=== PATIENT | male | born 1965 | race Caucasian/White ===

== ENCOUNTER 2019-05-18 17:02 | Emergency (ER) | payer OTHER ==
[~2019-05-18] VITALS: Ht 167.6 cm; Wt 68.9 kg
[2019-05-18] MEDS ORDERED: ATOR10TA PO (17:31)
[2019-05-18] MEDS ORDERED: LISI10TA5 PO (17:31)
--- NOTE | 2019-05-18 17:39 | NUR ---
Dr. Herrera at the bedside for MSE.
[2019-05-18] MEDS ORDERED: KETOROLAC TROMETHAMINE 30 MG INJ IVP ONE (17:45)
[2019-05-18] MEDS ORDERED: KETOROLAC TROMETHAMINE 30 MG INJ ONE ×2 (17:45→17:52)
[2019-05-18 17:51] LABS: BASOPHILS # (AUTO) 0.1 K/uL (0.0-8.0); BASOPHILS % (AUTO) 0.6 % (0.0-2.0); EOSINOPHILS # (AUTO) 0.6 K/uL (0.0-0.7); EOSINOPHILS % (AUTO) 6.3 % (0.0-7.0); HEMATOCRIT 41.7 % (36.7-47.1); HEMOGLOBIN 14.1 g/dL (12.5-16.3); LYMPHOCYTES # (AUTO) 1.7 K/uL (20.0-40.0); LYMPHOCYTES % (AUTO) 18.1 % (20.5-51.5); MEAN CORPUSCULAR HEMOGLOBIN 31.3 uug (23.8-33.4); MEAN CORPUSCULAR HGB CONC 34 g/dL (32.5-36.3); MEAN CORPUSCULAR VOLUME 92.9 fL (73.0-96.2); MONOCYTES # (AUTO) 1.1 K/uL (2.0-10.0); MONOCYTES % (AUTO) 11.1 % (0.0-11.0); NEUTROPHILS # (AUTO) 6.1 K/uL (1.8-8.9); NEUTROPHILS % (AUTO) 63.9 % (38.5-71.5); PLATELET COUNT (AUTO) 275 K/uL (152-348); RED BLOOD CELL COUNT(AUTO) 4.49 MIL/uL (4.06-5.63); WHITE BLOOD COUNT (AUTO) 9.6 K/uL (3.6-10.2)
[2019-05-18 17:55] LABS: *BILIRUBIN,URIN NEGATIVE (NEGATIVE); *BLOOD, URINE 3+ (NEGATIVE); *CLARITY,URINE SLIGHTLY CLOUDY (CLEAR); *COLOR,URINE AMBER (YELLOW); *KETONES,URINE NEGATIVE (NEGATIVE); *UROBILINOGEN,URINE 0.2 E.U./dl (NORMAL); LEUKOCYTE ESTERASE ,URINE TRACE (NEGATIVE); NITRITE, URINE NEGATIVE (NEGATIVE); PH,URINE 8.5 (5.0-8.0); UGLUCOSE NEGATIVE (NEGATIVE)
[2019-05-18] MEDS ORDERED: MORPHINE SULFATE 4 MG/1 ML DISP.SYRIN ONE (17:56)
[2019-05-18] MEDS ORDERED: ONDANSETRON 4 MG/2 ML VIAL ONE (17:56)
[2019-05-18] MEDS ORDERED: MORPHINE SULFATE 4 MG/1 ML DISP.SYRIN IV ONE (18:00)
[2019-05-18] MEDS ORDERED: ONDANSETRON 4 MG/2 ML VIAL IV ONE (18:00)
[2019-05-18 18:01] LABS: CREATININE 1.3 mg/dL (0.6-1.3); POTASSIUM 4.1 mmol/L (3.5-5.1)
[2019-05-18 18:06] LABS: BILIRUBIN,DIRECT 0.1 mg/dL (0.0-0.2); BILIRUBIN,TOTAL 0.6 mg/dL (0.2-1.0); TOTAL PROTEIN, SERUM 7.6 g/dL (6.4-8.2)
[2019-05-18 18:08] LABS: BACTERIA,URINE FEW /HPF (NONE SEEN); RBC,URINE 50-80 /HPF (0-3); SQUAMOUS EPITHELIAL CELL,UR FEW /HPF (NONE SEEN)
[2019-05-18] MEDS ORDERED: LORAZEPAM 2 MG/1 ML VIAL IV ONE (18:15)
[2019-05-18] MEDS ORDERED: KETAMINE HCL 500 MG/10 ML INJ IV ONE (18:15)
[2019-05-18] MEDS ORDERED: KETAMINE HCL 500 MG/10 ML INJ ONE (18:19)
[2019-05-18] MEDS ORDERED: LORAZEPAM 2 MG/1 ML VIAL ONE (18:23)
--- NOTE | 2019-05-18 18:52 | NUR ---
Pt returned from CT scan with radiologist. Pt stable and nad noted upon returning to the ER.
--- NOTE | 2019-05-18 19:21 | NUR ---
Full SBAR report given to YASMANY Fernandes.
[2019-05-18] MEDS ORDERED: TAMSULOSIN HCL 0.4 MG CAP.SR.24H PO ONE (19:30)
[2019-05-18] MEDS ORDERED: CEFTRIAXONE 1 G in IV DEXTROSE 5% 50 ML IV ONE (19:30)
[2019-05-18] MEDS ORDERED: TAMSULOSIN HCL 0.4 MG CAP.SR.24H ONE (19:33)
[2019-05-18] MEDS ORDERED: CEFTRIAXONE 1 G VIAL ONE (19:34)
--- NOTE | 2019-05-18 20:04 | NUR ---
D/c to to home signed and understand ACI given rx zofran, percocet and flomax. Advised not to drive a automobile states she will drive her home f/u with PCP x 1 day. D/c s/l cath intact.
[2019-05-18 20:14] VITALS: BP 120/70
== END 2019-05-18 20:05 | disposition home or self-care (01) ==
LOC: ER 17:05
DX: N20.2 Calculus of kidney with calculus of ureter (principal); J45.909 Unspecified asthma, uncomplicated; Z79.899 Other long term (current) drug therapy
CPT/HCPCS: 36415; 74176; 80048; 80076; 81000; 81001; 83690; 84484; 85025; 87086; 96365; 96375; 99284; J0696; J1885; J2060; J2270; J2405; J3490; J7060; 70030-TC; A4663; J7030

== ENCOUNTER 2019-05-20 20:21 | Emergency (ER) | payer OTHER ==
[~2019-05-20] VITALS: Ht 167.6 cm; Wt 71.7 kg
[~2019-05-20 20:21] MED LIST: ATOR10TA PO; LISI10TA5 PO
[2019-05-20] MEDS ORDERED: HYDROMORPHONE 1 MG/1 ML DISP.SYRIN ONE (21:14)
[2019-05-20] MEDS ORDERED: ONDANSETRON 4 MG/2 ML VIAL ONE (21:15)
[2019-05-20 21:21] LABS: BASOPHILS # (AUTO) 0.1 K/uL (0.0-8.0); BASOPHILS % (AUTO) 0.5 % (0.0-2.0); EOSINOPHILS # (AUTO) 0.3 K/uL (0.0-0.7); EOSINOPHILS % (AUTO) 3.5 % (0.0-7.0); HEMATOCRIT 40.8 % (36.7-47.1); HEMOGLOBIN 13.8 g/dL (12.5-16.3); LYMPHOCYTES # (AUTO) 1.4 K/uL (20.0-40.0); LYMPHOCYTES % (AUTO) 15.1 % (20.5-51.5); MEAN CORPUSCULAR HEMOGLOBIN 31.5 uug (23.8-33.4); MEAN CORPUSCULAR HGB CONC 34 g/dL (32.5-36.3); MEAN CORPUSCULAR VOLUME 93.3 fL (73.0-96.2); MONOCYTES # (AUTO) 0.9 K/uL (2.0-10.0); NEUTROPHILS # (AUTO) 6.9 K/uL (1.8-8.9); NEUTROPHILS % (AUTO) 71.9 % (38.5-71.5); PLATELET COUNT (AUTO) 268 K/uL (152-348); RED BLOOD CELL COUNT(AUTO) 4.37 MIL/uL (4.06-5.63); WHITE BLOOD COUNT (AUTO) 9.6 K/uL (3.6-10.2)
[2019-05-20] MEDS: HYDROMORPHONE 1 MG/1 ML DISP.SYRIN IV ONE (21:28)
[2019-05-20] MEDS: IV NORMAL SALINE 1000 ML BAG IV ONE (21:28)
[2019-05-20] MEDS: ONDANSETRON 4 MG/2 ML VIAL IV ONE (21:28)
[2019-05-20 21:34] LABS: BILIRUBIN,DIRECT 0.1 mg/dL (0.0-0.2); BILIRUBIN,TOTAL 0.5 mg/dL (0.2-1.0); CREATININE 1.1 mg/dL (0.6-1.3); TOTAL PROTEIN, SERUM 7.8 g/dL (6.4-8.2)
[2019-05-20] MEDS ORDERED: KETAMINE HCL 500 MG/10 ML INJ ONE (21:36)
[2019-05-20] MEDS ORDERED: LORAZEPAM 2 MG/1 ML VIAL ONE (21:37)
[2019-05-20] MEDS: KETAMINE HCL 500 MG/10 ML INJ IV ONE (21:40)
[2019-05-20] MEDS: LORAZEPAM 2 MG/1 ML VIAL IV ONE (21:40)
[2019-05-20 21:56] LABS: *BILIRUBIN,URIN NEGATIVE (NEGATIVE); *BLOOD, URINE 3+ (NEGATIVE); *CLARITY,URINE CLOUDY (CLEAR); *COLOR,URINE YELLOW (YELLOW); *KETONES,URINE 1+ (NEGATIVE); *UROBILINOGEN,URINE 0.2 E.U./dl (NORMAL); LEUKOCYTE ESTERASE ,URINE NEGATIVE (NEGATIVE); NITRITE, URINE NEGATIVE (NEGATIVE); PH,URINE 8.5 (5.0-8.0); UGLUCOSE NEGATIVE (NEGATIVE)
[2019-05-20 22:04] LABS: BACTERIA,URINE FEW /HPF (NONE SEEN); MUCUS,URINE FEW /LPF (0-FEW); RBC,URINE 50-80 /HPF (0-3); WBC,URINE NONE SEEN /HPF (0-3)
[2019-05-20] MEDS: KETOROLAC TROMETHAMINE 30 MG INJ IVP ONE (22:17)
[2019-05-20] MEDS ORDERED: KETOROLAC TROMETHAMINE 30 MG INJ ONE (22:18)
--- NOTE | 2019-05-20 22:45 | NUR ---
PT RECEIVED C/O LEFT FLANK PAIN, +GRIMACING, MOANING AND GUARDING OF SITE. AMBULATORY, ACCOMPANIED BY , KEPT WARM DRY AND COMFORTABLE. MD AT BEDSIDE FOR HX AND PHYSICAL PN MEDS ADMINISTERED ORDERED. PN AND COMFORT MEASURES REINFORCED
--- NOTE | 2019-05-21 00:30 | NUR ---
Patient discharged to home in stable conditon. Written and verbal after care instructions given. Patient verbalizes understanding of instructions. AMBULATORY AND PAIN IS AT 1-2/10. NOT IN DISTRESS
[2019-05-21] MEDS ORDERED: HYDROMORPHONE 1 MG/1 ML DISP.SYRIN ONE (00:47)
[2019-05-21] MEDS ORDERED: BISACODYL 5 MG TABLET.DR PO ONE (00:47)
[2019-05-21] MEDS ORDERED: KETOROLAC TROMETHAMINE 15 MG INJ ONE (00:49)
[2019-05-21] MEDS: BISACODYL 5 MG TABLET.DR PO ONE (00:57)
[2019-05-21] MEDS: HYDROMORPHONE 1 MG/1 ML DISP.SYRIN IV ONE (00:57)
[2019-05-21 01:55] VITALS: BP 140/85
== END 2019-05-21 00:50 | disposition home or self-care (01) ==
LOC: ER 20:22
DX: N20.0 Calculus of kidney (principal); E78.00 Pure hypercholesterolemia, unspecified; J45.909 Unspecified asthma, uncomplicated; Z79.899 Other long term (current) drug therapy
CPT/HCPCS: 36415; 71045; 80048; 80076; 81000; 81001; 83605 ×2; 83690; 84484; 85025; 87040 ×2; 87086; 93005; 96374; 96375; 96376; 99284; J1170 ×2; J1885; J2060; J2405; J3490; 70030-TC; A4663; J7030